=== PATIENT | female | born 1990 | race Caucasian/White ===

== ENCOUNTER 2018-07-09 08:59 | Inpatient (IN) | payer OTHER ==
[~2018-07-09] VITALS: Ht 172.7 cm; Wt 115.9 kg
[2018-07-09 09:00] VITALS: BP 132/80
[2018-07-09] MEDS: OXYTOCIN 30U/ 0.9% NaCL 500ML 500 ML IV SCH ×4 (10:41→23:25)
[2018-07-09] MEDS ORDERED: LACTATED RINGERS 1,000 ML IVBOLUS ONE (11:00)
[2018-07-09 11:28] LABS: BASOPHILS # (AUTO) 0.09 x10^3/uL (0-0.1); BASOPHILS % (AUTO) 1 % (0-1); EOSINOPHILS # (AUTO) 0.15 x10^3/uL (0-0.4); EOSINOPHILS % (AUTO) 1 % (1-7); LYMPHOCYTES # (AUTO) 1.72 x10^3/uL (1-3.4); LYMPHOCYTES % (AUTO) 16 % (22-44); MD NO; MEAN CORPUSCULAR HEMOGLOBIN 25.4 pg (27.0-34.8); MEAN CORPUSCULAR HGB CONC 32.7 g/dL (32.4-35.8); MEAN CORPUSCULAR VOLUME 77.6 fL (80-100); MONOCYTES # (AUTO) 0.87 x10^3/uL (0.2-0.8); MONOCYTES % (AUTO) 8 % (2-9); NEUTROPHILS # (AUTO) 8.15 x10^3/uL (1.8-6.8); NEUTROPHILS % (AUTO) 74 % (42-75); PLATELET COUNT 263 x10^3/uL (130-400); RED BLOOD COUNT 4.07 x10^6/uL (3.82-5.3); RED CELL DISTRIBUTION WIDTH 14.4 % (9.6-15.2)
[2018-07-09] MEDS ORDERED: NEWBORN KIT ONE (12:04)
[2018-07-09] MEDS: LACTATED RINGERS 1,000 ML IV SCH ×8 (12:15→23:25)
[2018-07-09] MEDS ORDERED: morphine SULFATE/PF 0.5 MG/ML, 10ML ONE (12:24)
[2018-07-09] MEDS: SODIUM CITRATE/CITRIC ACID 30 ML UDC PO SCH ×3 (12:25→21:00)
[2018-07-09] MEDS ORDERED: ONDANSETRON 2MG/ML, 2ML ONE (12:26)
[2018-07-09] MEDS ORDERED: CEFAZOLIN 1,000 MG ONE (12:26)
[2018-07-09] MEDS ORDERED: WATER-INJECTION,STERILE 10 ML IV ONE (12:26)
[2018-07-09] MEDS ORDERED: DEXAMETHASONE 4 MG/ML, 1ML ONE (12:26)
[2018-07-09] MEDS ORDERED: SODIUM CITRATE/CITRIC ACID 30 ML UDC ONE (12:26)
[2018-07-09] MEDS ORDERED: OXYTOCIN 30U/ 0.9% NaCL 500ML 500 ML ONE (12:26)
[2018-07-09] MEDS ORDERED: OXYTOCIN 10 UNITS/ML, 1ML ONE (12:26)
[2018-07-09] MEDS ORDERED: METOCLOPRAMIDE 5 MG/ML, 2ML ONE (12:26)
[2018-07-09] MEDS ORDERED: METOCLOPRAMIDE 5 MG/ML, 2ML IVPush ONE (13:00)
[2018-07-09] MEDS ORDERED: METHYLERGONOVINE 0.2 MG/ML IM PRN (13:30)
[2018-07-09] MEDS ORDERED: OXYcodone/APAP 5/325MG TABLET PO PRN (13:30)
[2018-07-09] MEDS ORDERED: morphine SULFATE 10 MG/ML, 1ML IVPush PRN (13:30)
[2018-07-09] MEDS ORDERED: MEPERIDINE/PF 100 MG/ML IVPush PRN (13:30)
[2018-07-09] MEDS ORDERED: METOCLOPRAMIDE 5 MG/ML, 2ML IV PRN (13:30)
[2018-07-09] MEDS ORDERED: MISOPROSTOL 200 MCG TABLET PR PRN (13:30)
[2018-07-09] MEDS ORDERED: ONDANSETRON 2MG/ML, 2ML IV PRN (13:30)
[2018-07-09] MEDS ORDERED: ACETAMINOPHEN 325 MG TABLET PO PRN (13:30)
[2018-07-09] MEDS ORDERED: MEPERIDINE/PF 50 MG/ML IVPush PRN (13:30)
[2018-07-09] MEDS ORDERED: DIPHENHYDRAMINE 50 MG/ML, 1ML ONE (14:30)
[2018-07-09] MEDS ORDERED: DIPHENHYDRAMINE 50 MG/ML, 1ML IVPush PRN (14:30)
[2018-07-09] MEDS ORDERED: KETOROLAC 30 MG/1 ML ONE (15:10)
[2018-07-09] MEDS ORDERED: OXYcodone/APAP 5/325MG TABLET ONE (15:11)
[2018-07-09] MEDS: KETOROLAC 30 MG/1 ML IV SCH ×3 (15:16→23:30)
[2018-07-09 16:00] VITALS: BP 111/69
[2018-07-09 21:00] VITALS: BP 114/71
[2018-07-09 21:36] LABS: MEAN CORPUSCULAR HEMOGLOBIN 25.1 pg (27.0-34.8); MEAN CORPUSCULAR HGB CONC 32.5 g/dL (32.4-35.8); MEAN CORPUSCULAR VOLUME 77.4 fL (80-100); MEAN PLATELET VOLUME 8.7 fL (7.4-10.4); PLATELET COUNT 259 x10^3/uL (130-400); RED BLOOD COUNT 3.81 x10^6/uL (3.82-5.3); RED CELL DISTRIBUTION WIDTH 14.6 % (9.6-15.2)
[2018-07-09 21:56] LABS: BASOPHILS # (AUTO) 0.01 x10^3/uL (0-0.1); BASOPHILS % (AUTO) 0 % (0-1); EOSINOPHILS # (AUTO) 0.21 x10^3/uL (0-0.4); EOSINOPHILS % (AUTO) 1 % (1-7); LYMPHOCYTES # (AUTO) 1.43 x10^3/uL (1-3.4); LYMPHOCYTES % (AUTO) 8 % (22-44); MD SCAN; MONOCYTES # (AUTO) 0.67 x10^3/uL (0.2-0.8); MONOCYTES % (AUTO) 4 % (2-9); NEUTROPHILS # (AUTO) 16.33 x10^3/uL (1.8-6.8); NEUTROPHILS % (AUTO) 88 % (42-75)
[2018-07-10 01:00] VITALS: BP 112/68
[2018-07-10] MEDS: LACTATED RINGERS 1,000 ML IV SCH ×5 (02:20→10:41)
[2018-07-10 05:00] VITALS: BP 110/69
[2018-07-10] MEDS: KETOROLAC 30 MG/1 ML IV SCH ×3 (06:38→18:28)
[2018-07-10] MEDS: OXYTOCIN 30U/ 0.9% NaCL 500ML 500 ML IV SCH ×2 (06:41→09:25)
[2018-07-10 07:05] VITALS: BP 114/75
[2018-07-10] MEDS: SODIUM CITRATE/CITRIC ACID 30 ML UDC PO SCH (08:00)
[2018-07-10] MEDS: FERROUS SULFATE 325 MG TABLET PO SCH (08:28)
[2018-07-10] MEDS: PRENATAL VIT/IRON/FA 1 EACH TABLET PO SCH (08:28)
[2018-07-10] MEDS: DOCUSATE 100 MG CAPSULE PO PRN (08:28)
[2018-07-10 11:57] VITALS: BP 108/68
[2018-07-10 20:00] VITALS: BP 121/73
[2018-07-11] MEDS ORDERED: IBUPROFEN 600 MG TABLET ONE ×2 (00:51→08:07)
[2018-07-11] MEDS: OXYcodone/APAP 5/325MG TABLET PO PRN ×2 (00:56→08:09)
[2018-07-11] MEDS: IBUPROFEN 600 MG TABLET PO PRN ×2 (00:56→08:09)
[2018-07-11] MEDS: DOCUSATE 100 MG CAPSULE PO PRN ×2 (00:56→08:09)
[2018-07-11] MEDS: PRENATAL VIT/IRON/FA 1 EACH TABLET PO SCH (08:09)
[2018-07-11] MEDS: FERROUS SULFATE 325 MG TABLET PO SCH (08:09)
[2018-07-11 08:20] VITALS: BP 122/72
[2018-07-11] MEDS ORDERED: IBUP-1222 PO (08:45)
[2018-07-11] MEDS ORDERED: OXYC-302 PO (08:45)
== END 2018-07-11 10:00 | disposition home or self-care (01) | DRG 784 ==
LOC: LDOP 08:59 → OBSVTOIN 10:30 → LDIP 10:30 → 2NW 15:40
PROVIDERS: ADMIT Obstetrics & Gynecology; ATTEND Obstetrics & Gynecology
PROC: 10D00Z1 Extraction of Products of Conception, Low, Open Approach (ICD-10-PCS; principal; 2018-07-09)
PROC: 0UB70ZZ Excision of Bilateral Fallopian Tubes, Open Approach (ICD-10-PCS; 2018-07-09)
DX: O36.8130 Decreased fetal movements, third trimester, not applicable or unspecified (principal); O41.03X0 Oligohydramnios, third trimester, not applicable or unspecified; O34.211 Maternal care for low transverse scar from previous cesarean delivery; Z37.0 Single live birth; Z3A.36 36 weeks gestation of pregnancy; Z80.3 Family history of malignant neoplasm of breast; Z82.3 Family history of stroke; Z82.49 Family history of ischemic heart disease and other diseases of the circulatory system; O99.02 Anemia complicating childbirth; D64.9 Anemia, unspecified; O99.844 Bariatric surgery status complicating childbirth
CPT/HCPCS: 36415; 76819; 84112; 85025; 86850; 86900; 88302; G0378; J0690; J1100; J1885; J2274; J2405; J1200; J2590; J2765; J7120